=== PATIENT | female | born 1950 | race Two or more races ===

== ENCOUNTER 2025-02-04 00:10 | Emergency (ER) | payer OTHER ==
[~2025-02-04] VITALS: Ht 152.4 cm; Wt 81.6 kg
[~2025-02-04 00:10] MED LIST: ASA81 MG PO; AVALIDE 150-12.1 TA1 PO; METFORMIN HCL500 M1 PO; NORVASC2.5 MG PO; SYNTHROID50 MCG PO; ZOCOR5 MG PO
[2025-02-04] MEDS ORDERED: JARDIANCE10 MG (00:41)
[2025-02-04] MEDS ORDERED: DIOVAN40 MG (00:41)
[2025-02-04] MEDS ORDERED: ORPHENADRINE CITRATE 100 MG TABLET PO STA (00:55)
[2025-02-04] MEDS ORDERED: KETOROLAC TROMETHAMINE 15 MG VIAL IM STA (00:55)
[2025-02-04] MEDS ORDERED: KETOROLAC TROMETHAMINE 30 MG VIAL ONE (01:09)
[2025-02-04] MEDS ORDERED: NORFLEX100MG PO (01:58)
[2025-02-04] MEDS ORDERED: ADVIL DUAL ACT1 EACH PO (01:58)
== END 2025-02-04 02:19 | disposition home or self-care (01) ==
LOC: ER 00:11
DX: M54.31 Sciatica, right side (principal); I10 Essential (primary) hypertension; M19.90 Unspecified osteoarthritis, unspecified site; E11.9 Type 2 diabetes mellitus without complications; Z79.84 Long term (current) use of oral hypoglycemic drugs
CPT/HCPCS: 96372; 99282; J1885